=== PATIENT | female | born 1995 | race Caucasian/White ===

== ENCOUNTER → 2017-10-12 | Outpatient (REF) | payer OTHER ==
[2017-10-12 18:23] LABS: CHLAMYDIA DNA AMPLIFICATION NEGATIVE (NEGATIVE); GC DNA AMPLIFICATION NEGATIVE (NEGATIVE)
== END ==
LOC: M SFHCLERA 10:05
DX: N30.00 Acute cystitis without hematuria (principal)
CPT/HCPCS: 87086

== ENCOUNTER 2021-10-04 02:26 | Outpatient (CLI) | payer OTHER ==
[~2021-10-04] VITALS: Ht 157.5 cm; Wt 92.7 kg
[2021-10-04] MEDS ORDERED: PNVTAB4 PO (02:46)
[2021-10-04 02:51] VITALS: BP 121/70
[2021-10-04 03:24] LABS: APPEARANCE, URINE CLEAR (CLEAR); BACTERIA, URINE AUTO 1+ (NEGATIVE); BILIRUBIN, URINE AUTO NEGATIVE (NEGATIVE); BLOOD, URINE BLOOD NEGATIVE (NEGATIVE); COLOR, URINE YELLOW (YELLOW); GLUCOSE, URINE (UA) AUTO NEGATIVE (NEGATIVE); KETONE, URINE AUTO NEGATIVE (NEGATIVE); LEUKOCYTE ESTERASE, URINE AUTO NEGATIVE (NEGATIVE); MUCUS, URINE SMALL (NEGATIVE); NITRITE, URINE AUTO NEGATIVE (NEGATIVE); PROTEIN, URINE AUTO NEGATIVE (NEGATIVE); RBC, URINE AUTO 1 /HPF (0-3); SPECIFIC GRAVITY URINE AUTO 1.013 (1.002-1.035); SQUAMOUS EPITHELIAL CELL UR AU 2 /HPF (0-6); UROBILINOGEN, URINE AUTO 0.2 mg/dL (0.0-2.0); WBC, URINE AUTO 0 /HPF (0-3)
[2021-10-04 03:58] VITALS: BP 103/56
[2021-10-04 05:09] VITALS: BP 119/72
== END 2021-10-04 06:17 | disposition home or self-care (01) ==
LOC: M LDO 02:26
PROVIDERS: ATTEND Obstetrics & Gynecology
CPT/HCPCS: 59025; 81001; G0463

== ENCOUNTER 2021-11-28 04:08 | Outpatient (CLI) | payer OTHER ==
[~2021-11-28] VITALS: Ht 160 cm; Wt 95.4 kg
[~2021-11-28 04:08] MED LIST: PNVTAB4 PO
[2021-11-28] MEDS ORDERED: HOME MED LIST COMPLETE! XX SCH (04:30)
[2021-11-28 04:31] VITALS: BP 122/79
[2021-11-28 05:45] VITALS: BP 122/58
== END 2021-11-28 06:32 | disposition home or self-care (01) ==
LOC: M LDO 04:08
PROVIDERS: ATTEND Obstetrics & Gynecology
DX: O26.893 Other specified pregnancy related conditions, third trimester (principal); R25.2 Cramp and spasm; Z3A.39 39 weeks gestation of pregnancy; O99.283 Endocrine, nutritional and metabolic diseases complicating pregnancy, third trimester; E83.52 Hypercalcemia
CPT/HCPCS: 59025; G0463

== ENCOUNTER 2021-11-29 19:17 | Inpatient (IN) | payer OTHER ==
[~2021-11-29] VITALS: Ht 160 cm; Wt 96.3 kg
[2021-11-29 19:30] VITALS: BP 144/84
[2021-11-29 19:36] VITALS: BP 144/84
[2021-11-29] MEDS ORDERED: miSOPROStol 25MCG 1/4 TABLET PO ONE (21:20)
[2021-11-29] MEDS ORDERED: LR 1,000 ML IV SCH (21:20)
[2021-11-29] MEDS ORDERED: METHYLERGONOVINE MALEATE 0.2 MG/ML VIAL (J2210) IM PRN (21:20)
[2021-11-29] MEDS ORDERED: LIDOCAINE 1% MDV 20ML VIAL INFIL PRN (21:20)
[2021-11-29] MEDS ORDERED: OXYTOCIN DRIP 30 UNITS in IV 1 EA IV PRN ×4 (21:20)
[2021-11-29 21:37] VITALS: BP 141/82
[2021-11-29 22:00] LABS: HEMATOCRIT 35.8 % (36.0-47.0); HEMOGLOBIN 12.7 g/dl (12.0-15.5); MEAN CORPUSCULAR HGB CONC 35.5 g/dl (32.0-36.5); MEAN CORPUSCULAR VOLUME 90.2 fl (80.0-96.0); PLATELET COUNT, AUTOMATED 143 10^3/uL (150-450); RED BLOOD COUNT 3.97 10^6/uL (4.00-5.40); WHITE BLOOD COUNT 12.5 10^3/uL (4.0-10.0)
[2021-11-30 00:25] VITALS: BP 134/67
[2021-11-30] MEDS ORDERED: miSOPROStol 25MCG 1/4 TABLET PO SCH (02:00)
[2021-11-30] MEDS ORDERED: miSOPROStol 50MCG 1/2 TABLET PO ONE ×2 (11:00→16:30)
[2021-11-30] MEDS ORDERED: OXYTOCIN INJ 10 UNITS/ML VIAL (J2590) IV ONE (11:05)
== END 2021-11-30 22:45 | disposition home or self-care (01) | DRG 833 ==
LOC: M LDI 19:17
PROVIDERS: ADMIT Obstetrics & Gynecology; ATTEND Obstetrics & Gynecology
PROC: 3E0P7GC Introduction of Other Therapeutic Substance into Female Reproductive, Via Natural or Artificial Opening (ICD-10-PCS; principal; 2021-11-29)
DX: O99.113 Other diseases of the blood and blood-forming organs and certain disorders involving the immune mechanism complicating pregnancy, third trimester (principal); D69.6 Thrombocytopenia, unspecified; Z86.16 Personal history of COVID-19; O61.0 Failed medical induction of labor; Z3A.39 39 weeks gestation of pregnancy; O99.214 Obesity complicating childbirth; E66.9 Obesity, unspecified

== ENCOUNTER 2021-12-01 09:58 | Outpatient (CLI) | payer OTHER ==
[~2021-12-01] VITALS: Ht 160 cm; Wt 96.4 kg
[2021-12-01 10:21] VITALS: BP 114/73
== END 2021-12-01 11:30 | disposition home or self-care (01) ==
LOC: M LDO 09:58
PROVIDERS: ATTEND Obstetrics & Gynecology
DX: O99.283 Endocrine, nutritional and metabolic diseases complicating pregnancy, third trimester (principal); Z3A.39 39 weeks gestation of pregnancy; E83.52 Hypercalcemia; Z87.59 Personal history of other complications of pregnancy, childbirth and the puerperium; Z86.16 Personal history of COVID-19
CPT/HCPCS: 59025; G0378

== ENCOUNTER 2021-12-13 22:14 | Inpatient (IN) | payer OTHER ==
[~2021-12-13] VITALS: Ht 157.5 cm; Wt 95.3 kg
[2021-12-13 22:36] VITALS: BP 113/65
[2021-12-13 23:15] LABS: HEMATOCRIT 38.7 % (36.0-47.0); HEMOGLOBIN 13.6 g/dl (12.0-15.5); MEAN CORPUSCULAR HEMOGLOBIN 31.5 pg (27.0-33.0); MEAN CORPUSCULAR HGB CONC 35.1 g/dl (32.0-36.5); MEAN CORPUSCULAR VOLUME 89.6 fl (80.0-96.0); PLATELET COUNT, AUTOMATED 143 10^3/uL (150-450); RED BLOOD COUNT 4.32 10^6/uL (4.00-5.40); WHITE BLOOD COUNT 13.5 10^3/uL (4.0-10.0)
[2021-12-13] MEDS ORDERED: HOME MED LIST COMPLETE! XX SCH (23:15)
[2021-12-13 23:40] VITALS: BP 119/79
[2021-12-13] MEDS ORDERED: OXYTOCIN INJ 10 UNITS/ML VIAL (J2590) IV PRN (23:50)
[2021-12-13] MEDS ORDERED: TRANEXAMIC ACID INJection 1,000 MG in NS 100 ML IV PRN (23:50)
[2021-12-13] MEDS: OXYTOCIN DRIP 30 UNITS in IV 1 EA IV PRN (23:50)
[2021-12-13] MEDS ORDERED: OXYTOCIN DRIP 30 UNITS in IV 1 EA IV PRN (23:50)
[2021-12-13] MEDS ORDERED: LACTATED RINGER'S 1000 ML IV ONE (23:50)
[2021-12-13] MEDS ORDERED: miSOPROStol 50MCG 1/2 TABLET PO ONE (23:50)
[2021-12-13] MEDS ORDERED: METHYLERGONOVINE MALEATE 0.2 MG/ML VIAL (J2210) IM PRN (23:50)
[2021-12-14] VITALS (27 sets, daily range): BP systolic 102–165; BP diastolic 51–79
[2021-12-14] MEDS: LR 1,000 ML IV SCH ×2 (06:11→09:09)
[2021-12-14] MEDS: OXYTOCIN DRIP 30 UNITS in IV 1 EA IV SCH (06:12)
[2021-12-14] MEDS ORDERED: FENTANYL/ROPIVACAINE/NACL BAG 100 ML EPIDURAL SCH (07:45)
[2021-12-14] MEDS ORDERED: LR 500 ML IV PRN (07:45)
[2021-12-14] MEDS ORDERED: EPIDURAL/PCA KEYS XX PRN (07:45)
[2021-12-14] MEDS ORDERED: diphenhydrAMINE 50MG/ML VIAL (J1200) IV PRN (07:45)
[2021-12-14] MEDS ORDERED: ePHEDrine SULFATE 25 MG/5 ML(5MG/ML) SYRINGE IVP PRN (07:45)
[2021-12-14] MEDS ORDERED: ONDANSETRON 4MG 2ML VIAL IV PRN (07:45)
[2021-12-14] MEDS ORDERED: NALOXONE INJ 0.4MG/1ML VIAL (J2310 PER 1MG) IV PRN (07:45)
[2021-12-14] MEDS ORDERED: FENTANYL 2MCG/ML ROPIVACAINE 0.2% IN 0.9% NACL 100ML IVBAG As Ordered ONE (07:53)
[2021-12-14] MEDS ORDERED: METHYLERGONOVINE MALEATE 0.2 MG TAB PO PRN (10:40)
[2021-12-14] MEDS ORDERED: RHOGAM 300 MCG (1500 IU) INJ (J2790) IM SCH (10:40)
[2021-12-14] MEDS ORDERED: DIBUCAINE 1% OINTMENT 30GM TOP PRN (10:40)
[2021-12-14] MEDS: PRENATAL VITAMINS CHEWABLE TABLET PO SCH (11:08)
[2021-12-14] MEDS: ACETAMINOPHEN TAB 650MG DOSE (2X325MG) PO PRN ×2 (11:09→14:42)
[2021-12-14] MEDS: IBUPROFEN 800 MG TAB PO PRN ×2 (11:09→20:34)
[2021-12-14] MEDS: OXYTOCIN DRIP 30 UNITS in IV 1 EA IV PRN (11:10)
[2021-12-14] MEDS: DOCUSATE SODIUM 100MG CAPSULE PO PRN (20:43)
[2021-12-15] MEDS: ACETAMINOPHEN TAB 650MG DOSE (2X325MG) PO PRN ×2 (00:22→22:18)
[2021-12-15 06:00] VITALS: BP 111/57
[2021-12-15] MEDS: IBUPROFEN 800 MG TAB PO PRN ×2 (06:33→18:12)
[2021-12-15] MEDS: PRENATAL VITAMINS CHEWABLE TABLET PO SCH (10:54)
[2021-12-15] MEDS: DOCUSATE SODIUM 100MG CAPSULE PO PRN ×3 (10:54→21:35)
[2021-12-15 18:00] VITALS: BP 124/67
[2021-12-16] MEDS: OXYTOCIN DRIP 30 UNITS in IV 1 EA IV SCH (00:05)
[2021-12-16] MEDS: IBUPROFEN 800 MG TAB PO PRN (02:30)
[2021-12-16 06:00] VITALS: BP 125/61
[2021-12-16] MEDS: PRENATAL VITAMINS CHEWABLE TABLET PO SCH (08:26)
[2021-12-16] MEDS: ACETAMINOPHEN TAB 650MG DOSE (2X325MG) PO PRN (08:26)
[2021-12-16] MEDS: DOCUSATE SODIUM 100MG CAPSULE PO PRN (08:26)
[2021-12-16] MEDS ORDERED: MEASLES,MUMPS,RUBELLA VACCINE INJ (MMR-II) (90707) SC.IMMUN ONE (09:00)
== END 2021-12-16 18:45 | disposition home or self-care (01) | DRG 807 ==
LOC: M LDI 22:14 → M OBS 12-14 11:19
PROVIDERS: ADMIT Obstetrics & Gynecology; ATTEND Registered Nurse
PROC: 3E0P7GC Introduction of Other Therapeutic Substance into Female Reproductive, Via Natural or Artificial Opening (ICD-10-PCS; 2021-12-13)
PROC: 10E0XZZ Delivery of Products of Conception, External Approach (ICD-10-PCS; principal; 2021-12-14)
PROC: 10907ZC Drainage of Amniotic Fluid, Therapeutic from Products of Conception, Via Natural or Artificial Opening (ICD-10-PCS; 2021-12-14)
DX: O48.0 Post-term pregnancy (principal); Z37.0 Single live birth; Z3A.41 41 weeks gestation of pregnancy

== ENCOUNTER → 2022-03-06 | Outpatient (CLI) | payer OTHER | LOC: M PLARAD 13:58 | PROVIDERS: ATTEND Family Medicine | DX: H47.10 Unspecified papilledema (principal) ==

== ENCOUNTER → 2022-05-07 | Outpatient (CLI) | payer OTHER ==
[~2022-05-07] MED LIST changes: +LIDOCAINE 1% MDV 20ML VIAL As Ordered ONE
[2022-05-07 08:21] LABS: BASO # 0.1 10^3/uL (0.0-0.2); BASO % 0.9 % (0.0-1.0); EOS # 0.4 10^3/uL (0.0-0.5); EOS % 5.1 % (0.0-3.0); HEMATOCRIT 41.2 % (36.0-47.0); HEMOGLOBIN 14.3 g/dl (12.0-15.5); LYMPH # 2.4 10^3/uL (1.5-5.0); LYMPH % 30.6 % (24.0-44.0); MEAN CORPUSCULAR HEMOGLOBIN 30.9 pg (27.0-33.0); MEAN CORPUSCULAR HGB CONC 34.7 g/dl (32.0-36.5); MONO # 0.7 10^3/uL (0.0-0.8); MONO % 8.5 % (2.0-8.0); NEUTROPHILS # 4.2 10^3/uL (1.5-8.5); NEUTROPHILS % 54.4 % (36.0-66.0); PLATELET COUNT, AUTOMATED 188 10^3/uL (150-450); RED BLOOD COUNT 4.63 10^6/uL (4.00-5.40); WHITE BLOOD COUNT 7.8 10^3/uL (4.0-10.0)
[2022-05-07 08:31] LABS: INR 0.97; PROTHROMBIN TIME 13.1 SECONDS (12.5-14.5)
[2022-05-07 08:32] LABS: PARTIAL THROMBOPLASTIN TIME 28.7 SECONDS (24.8-34.2)
[2022-05-07 10:38] LABS: APPEARANCE, CSF CLEAR (CLEAR); COLOR, CSF COLORLESS (COLORLESS); CSF TUBE# CELL CNT TUBE 1
[2022-05-07 11:00] VITALS: BP 120/58
[2022-05-07 11:17] LABS: CSF TUBE# TP TUBE 1; TOTAL PROTEIN,CSF 25.6 MG/DL (15-45)
[2022-05-07 11:20] LABS: CSF TUBE# GLU TUBE 1
== END ==
LOC: M IRPRO 07:50
PROVIDERS: ATTEND Psychiatry & Neurology Neurology
DX: H47.10 Unspecified papilledema (principal)

== ENCOUNTER → 2023-04-12 | Outpatient (REF) | payer OTHER ==
[~2023-04-12] MED LIST changes: -LIDOCAINE 1% MDV 20ML VIAL As Ordered ONE
== END ==
LOC: M LAB REF 17:55
PROVIDERS: ATTEND Physician Assistant Medical
DX: J02.9 Acute pharyngitis, unspecified (principal)